=== PATIENT | male | born 1970 | race Caucasian/White ===

== ENCOUNTER 2017-02-05 10:50 | Emergency (ER) | payer MEDICAID, OTHER ==
[~2017-02-05] VITALS: Ht 182.9 cm; Wt 151.3 kg
[2017-02-05] MEDS ORDERED: EYE DROPS OD (11:07)
[2017-02-05 11:08] VITALS: BP 155/95
== END 2017-02-05 12:15 | disposition home or self-care (01) ==
LOC: EMS 10:51
DX: S30.821A Blister (nonthermal) of abdominal wall, initial encounter (principal); Z88.6 Allergy status to analgesic agent; X58.XXXA Exposure to other specified factors, initial encounter; Y93.E1 Activity, personal bathing and showering; Y92.89 Other specified places as the place of occurrence of the external cause; Y99.8 Other external cause status
CPT/HCPCS: 99281; 99282

== ENCOUNTER 2017-04-07 15:06 | Emergency (ER) | payer OTHER ==
[~2017-04-07] VITALS: Ht 182.9 cm; Wt 154.6 kg
[~2017-04-07 15:06] MED LIST: EYE DROPS OD
[2017-04-07 15:15] VITALS: BP 140/87
== END 2017-04-07 18:02 | disposition left against medical advice (07) ==
LOC: EMS 15:13
DX: R07.89 Other chest pain (principal); Z53.21 Procedure and treatment not carried out due to patient leaving prior to being seen by health care provider
CPT/HCPCS: 93005

== ENCOUNTER 2018-03-29 18:25 | Emergency (ER) | payer MEDICAID, OTHER ==
[~2018-03-29] VITALS: Ht 182.9 cm; Wt 145.5 kg
[2018-03-29] MEDS ORDERED: LIDOCAINE/PF 1% 2 ML VIAL IM ONE (19:15)
[2018-03-29] MEDS ORDERED: PERTUSS(ACELL),DIPH,TET VAC/PF 0.5 ML VIAL IM ONE (19:15)
[2018-03-29] MEDS ORDERED: CefTRIAXone SODIUM 1 GM/VIAL IM ONE (19:15)
[2018-03-29 19:34] LABS: BASOPHILS % (AUTO) 0.7 % (0.0-2.0); EOSINOPHILS % (AUTO) 4.5 % (1.0-6.0); HEMATOCRIT 41.9 % (41-53); HEMOGLOBIN 14.4 g/dL (13.5-17.5); LYMPHOCYTES # (AUTO) 2.2 K/uL (1.0-4.8); LYMPHOCYTES % (AUTO) 26.2 % (22.0-44.0); MEAN CORPUSCULAR HEMOGLOBIN 33.4 pg (26.0-34.0); MEAN CORPUSCULAR HGB CONC 34.4 G/dL (31.0-37.0); MEAN CORPUSCULAR VOLUME 97 fL (80-100); MONOCYTES # (AUTO) 0.7 K/uL (0.1-1.0); MONOCYTES % (AUTO) 8.2 % (2.0-9.0); NEUTROPHILS % (AUTO) 60.4 % (40.0-70.0); PLATELET COUNT (AUTO) 280 K/uL (150-450); RED BLOOD CELL COUNT(AUTO) 4.31 MIL/uL (4.50-5.90); RED CELL DISTRIBUTION WIDTH 12.8 % (11.5-14.5)
[2018-03-29 19:43] LABS: ANION GAP 7 mmol/L (8-16); CALCIUM, TOTAL 9.2 mg/dL (8.8-10.5); CARBON DIOXIDE 28 mmol/L (22-29); CHLORIDE 102 mmol/L (98-107); GLOMERULAR FILTR. RATE CALC > 60 mL/min (>60); GLUCOSE,RANDOM 136 mg/dL (70-110); POTASSIUM 4.1 mmol/L (3.5-5.1); SODIUM SERUM 137 mmol/L (136-145); UREA NITROGEN, BLOOD 14 mg/dL (7-18)
[2018-03-29 21:00] VITALS: BP 148/86
== END 2018-03-29 21:16 | disposition home or self-care (01) ==
LOC: EMS 18:26
DX: L03.114 Cellulitis of left upper limb (principal); R03.0 Elevated blood-pressure reading, without diagnosis of hypertension; H40.9 Unspecified glaucoma; Z98.890 Other specified postprocedural states; Z88.6 Allergy status to analgesic agent
CPT/HCPCS: 36415; 73080; 80048; 85025; 90471; 90715; 96372; 99285; J0696; J3490

== ENCOUNTER 2022-09-28 18:23 | Emergency (ER) | payer MEDICAID, OTHER ==
[~2022-09-28] VITALS: Ht 182.9 cm; Wt 159.1 kg
[2022-09-28 22:45] VITALS: BP 148/89
== END 2022-09-28 23:56 | disposition home or self-care (01) ==
LOC: EMS 18:25
DX: I10 Essential (primary) hypertension (principal); Z98.890 Other specified postprocedural states; Z88.6 Allergy status to analgesic agent; Z88.8 Allergy status to other drugs, medicaments and biological substances
CPT/HCPCS: 93005; 99283

== ENCOUNTER 2023-04-02 07:35 | Emergency (ER) | payer OTHER ==
[~2023-04-02] VITALS: Ht 185.4 cm; Wt 150.0 kg
[2023-04-02 07:42] VITALS: TEMP 98.5
[2023-04-02] MEDS ORDERED: METO25 PO (07:43)
[2023-04-02 08:06] VITALS: BP 148/72; PULSE 70; RESP 18
== END 2023-04-02 08:07 | disposition home or self-care (01) ==
LOC: EMS 07:37
DX: B35.1 Tinea unguium (principal); I10 Essential (primary) hypertension; Z98.890 Other specified postprocedural states; Z88.6 Allergy status to analgesic agent; Z91.018 Allergy to other foods; Z02.79 Encounter for issue of other medical certificate
CPT/HCPCS: 99281; Z7502

== ENCOUNTER 2023-09-09 19:47 | Emergency (ER) | payer OTHER ==
[~2023-09-09] VITALS: Ht 182.9 cm; Wt 147.7 kg
[~2023-09-09 19:47] MED LIST changes: -EYE DROPS OD; +METO25 PO
[2023-09-09 19:52] VITALS: TEMP 97.5
[2023-09-09 22:00] VITALS: BP 153/69; PULSE 64; RESP 16
== END 2023-09-09 22:45 | disposition home or self-care (01) ==
LOC: EMS 19:47
DX: H57.12 Ocular pain, left eye (principal); I10 Essential (primary) hypertension; Z88.6 Allergy status to analgesic agent
CPT/HCPCS: 99282; Z7502